=== PATIENT | female | born 1980 | race Caucasian/White ===

== ENCOUNTER 2023-08-21 13:23 | Outpatient (CLI) | payer OTHER, SELFPAY | END 2023-08-21 13:24 | disposition home or self-care (01) | PROVIDERS: Visit Provider Emergency Medicine | DX: R10.9 Unspecified abdominal pain (principal); R68.89 Other general symptoms and signs; R19.8 Other specified symptoms and signs involving the digestive system and abdomen | CPT/HCPCS: 80053; 83690; 84443; 86140; 86258; 86364 ==

== ENCOUNTER 2023-09-08 11:57 | Outpatient (CLI) | payer OTHER, SELFPAY ==
--- NOTE | 2023-09-08 13:35 | W.ANESCHARGE ---
Anesthesia Charges Start Date/Time Anesthesia Start Date: 09/08/23 Anesthesia Start Time: 13:10 Stop Date/Time Anesthesia Stop Date: 09/08/23 Anesthesia Stop Time: 13:37
--- NOTE | 2023-09-08 13:37 | W.ANESCHARGE ---
Anesthesia Charges Start Date/Time Anesthesia Start Date: 09/08/23 Anesthesia Start Time: 13:10 Stop Date/Time Anesthesia Stop Date: 09/08/23 Anesthesia Stop Time: 13:37
== END 2023-09-08 11:58 | disposition home or self-care (01) ==
LOC: OP CLINIC 12:03
PROVIDERS: PCP Emergency Medicine; Visit Provider Surgery
DX: R10.84 Generalized abdominal pain (principal)
CPT/HCPCS: 00811; 45380; 88305; J2405; J2704

== ENCOUNTER 2023-10-09 08:09 | Outpatient (CLI) | payer OTHER, SELFPAY | END 2023-10-09 08:10 | disposition home or self-care (01) | LOC: LKVREF 08:10 | PROVIDERS: PCP Emergency Medicine; Visit Provider Emergency Medicine | DX: R10.13 Epigastric pain (principal) | CPT/HCPCS: 87338 ==

== ENCOUNTER 2024-08-21 11:39 | Emergency (ER) | payer OTHER, SELFPAY ==
--- OUTSIDE RECORDS SUMMARY | 2024-08-21 11:42 | XMS_ITS | Encounter Summary ---
Author Organization [facility] Address [address] [address] Care Team Providers Care Welfare Investigator Name Role Phone Valeria Vaca PA-C Primary Care Provider +1 [phone] Encounter Details Date Type Department Care Team (Late st Contact Info) Description 05/20/2017 Correspondence None No Primary/Referring, Phy E EQUIPMENT TRANSIT BUS DRIVER TICKET Social History Tobacco Use Types Packs/Day Years Used Date Smoking Tobacco: Never Smokeless Tobacco: Never Alcohol Use Standard Drinks/Week Comments No 2 (1 standard drink = 0.6 oz pur e alcohol) Comments Yes Sex and Gender Information Value Date Recorded Sex Assigned at Not on file Legal Sex Female 6:58 AM CDT Gender Identity Not on file Sexual Orientation Not on file 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 Not on file documented as of this encounter Plan of Treatment Upcoming Encounters Date Type Department Care Team (Late st Contact Info) Description 09/02/2024 1:10 PM CDT Appointment [facility] M[facility] at [facility] [address] [address] documented as of this encounter Visit Diagnoses Not on filedocumented in this encounter Additional Health Concerns Infection Onset Date Last Indicated Resolved Time R/O COVID19 01/02/2020 01/02/2020 01/06/2020 12:1 6 PM CDT R/O COVID19 04/24/2021 04/24/2021 04/24/2021 8:44 PM CDT documented as of this encounter Care Teams Welfare Investigator Relationship Specialty Start Date End Date Valeria Vaca PA-C [address] [place] [address] PCP - General Physician Environmental Protection Inspector 01/05/19 documented as of this encounter
--- OUTSIDE RECORDS SUMMARY | 2024-08-21 11:43 | XMS_ITS | Clinical Summary ---
Author Organization [facility] Address [address] [place] [address] Care Team Providers Care Meter Installer Name Role Phone Valeria Vaca PA-C Primary Care Provider [phone] Source Comments You are receiving this document as you are listed as the primary care provider,follow-up provider, or the patient has been referred to you for consultation.This is in compliance with the Medicare and[facility] EHR Incentive Program,which states Providers who transition their patient to another setting of careor provider of care or refers their patient to another provider of care shouldprovide summary care record for each transition of care or referral. [facility] Allergies Active Allergy Reactions Criticality Noted Date Comments Sulfa Antibiotics Other, see comments 4 Short term memory loss Sulfa Antibiotics Other, see comments High 5 Short term memory loss. Medications * This document contains information received from the source organization and may not represent a complete record from that organization. metroNIDAZOLE (METROCREAM) 0.75 % creamIndication s:Perioral dermatitis Apply a thin layer to lower face once a day. 45 g 3 2 Active hydrocortisone 2.5 % ointmentIndicat ions:Rash Apply topically to affected areas on the armpits twice a day for 2 weeks for rash and itchy. 45 g 1 2 Active cholecalciferol (VITAMIND3) 50 MCG (2000 UT) tablet Take 1 Tablet (2,000 Units) by mouth daily. Active Active Problems Problem Noted Date Diagnosed Date Not immune to hepatitis B virus 11/12/2016 Overview (06/17/2017): Will start series pp Resolved Problems Problem Noted Date Diagnosed Date Resolved Date Anemia, 07/02/2017 Overview (07/02/2017): QBL 600. PP Hgb 10.6 (down from 11/3 on admission) Normal labor 07/01/2017 08/11/2017 (spontaneous vaginal delivery) 07/01/2017 08/11/2017 Cervical cancer screening 03/01/2016 Overview (02/12/2017): From visit on 02/27/16: History of abnormal pap tests? Yes; Age: unknown -pt reports positive hpv 3-4 years ago, had normal follow up paptests 2015 NILM ,neg HPV 35 y.o. Plan: cotest 02/2019 ; Pap test history depression 08/02/20152020 Overview (07/02/2017): Attributes to lifestyle change, being a first time mother. Moods improved with therapy. No meds Mood has been stable 2nd - denies concern for PPD as of 07/01/17 (normal spontaneous vaginal delivery) 06/17/2015 08/02/2015 Hx of major depression 11/18/201408/02 Overview (03/14/2015): Plan visit with counselor at the end of to make plan for pp Ongoing counselor care, twice monthly. No meds. Immunizations Immunization Administration Dates Next Due Influenza IIV4 (Quadrivalent ) 0.5mL (74959) 05/09/2015(Deferred: Patient Refused) Family History Medical History Relation Name Comments Hyperlipidemia Father Hypertension Father Cerebrovascular Disease Mother CADA LESLI Hyperlipidemia Mother Hypertension Mother Stroke Mother Cerebrovascular Disease Maternal Uncle 1 Cerebrovascular Disease Maternal Uncle 2 Cancer, Breast Negative Family History Cancer, Ovary Negative Family History Relation Name Status Comments Father Alive Mother Alive Brother Alive Maternal Grandmother Maternal Uncle 1 Maternal Uncle 2 Alive Social History Tobacco Use Types Packs/Day Years Used Date Smoking Tobacco: Never Smokeless Tobacco: Never Alcohol Use Standard Drinks/Week Comments Yes 2 (1 standard drink = 0.6 oz pur e alcohol) PHQ-2 Answer Date Recorded PHQ-2 Score 0 08/02/2022 Depression Answer Date Recor ded Last EPDS Total Score 4 07/31/2024 Last EPDS Self Harm Result Not on file 07/31 Comments No Sex and Gender Information Value Date Recorded Sex Assigned at Not on file Legal Sex Female 6:58 AM CDT Gender Identity Not on file Sexual Orientation Not on file 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 Not on file Last Filed Vital Signs Vital Sign Reading Time Taken Comments Blood Pressure 104/71 06/02/2023 1:07 PM UTILITY OPERATOR YARN Pulse 71 06/02/2023 1:07 PM UTILITY OPERATOR YARN Temperature 36.7 C (98.1 F) 06/02/2023 1:07 PM UTILITY OPERATOR YARN Respiratory Rate 12 06/02/2023 1:07 PM UTILITY OPERATOR YARN Oxygen Saturation 96% 10/04/2021 11:00 AM CDT Inhaled Oxygen Concentration - - Weight 68.1 kg (150 lb 2 oz) 08/02/2022 8:31 AM UTILITY OPERATOR YARN Height 168.9 cm (5' 6.5) 08/02/2022 8:31 AM UTILITY OPERATOR YARN Body Mass Index 23.87 08/02/2022 8:31 AM UTILITY OPERATOR YARN Plan of Treatment Upcoming Encounters Date Type Department Care Team (Late st Contact Info) Description 09/02/2024 1:10 PM CDT Appointment [facility] at [facility] [place] [address] Health Maintenance Due Date Last Done Comments DTaP/Tdap/Td (1 - Tdap) 1999 HepB (1) 1999 COVID-19 Vaccine ( season) 2024 Influenza (#1) 2024 Adult Preventive Visit 08/02/2024 , 04/24/2021, 01/05/2019, Additional history exists Mammogram 08/19/2024 08/19/2023, 07/25, 05/22/2021 Cervical Cancer Screening 04/24/2026 04/24/2021, 11/2015 Zoster/Shingles (1 of 2) 2030 HIV Screening (Preventive Services) Completed 11/11/2016, 11/18/2014 Hep C Screening (Preventive Services) Completed 11/11/2016, 11/18/2014 HPV Vaccine Aged Out No longer eligi ble based on patient's age to complete this topic HepA Aged Out No longer eligi ble based on patient's age to complete this topic Hib Aged Out No longer eligi ble based on patient's age to complete this topic IPV (Polio) Aged Out No longer eligi ble based on patient's age to complete this topic MCV4 Aged Out No longer eligi ble based on patient's age to complete this topic Meningococcal B Aged Out No longer el igible based on patient's age to complete this topic Pneumococcal Aged Out No longer eligi ble based on patient's age to complete this topic Procedures Procedure Name Priority Date/Time Associated Diagnosis Comments MM MAMMOGRAM SCREENING BILAT W 3D [place] W CAD Routine 08/19/2023 3:30 PM UTILITY OPERATOR YARN PAP TEST Routine 04/24/2021 11:57 AM CDT Screening for malignant neoplasm of cervix HIV 1/2 AG/AB 4TH GEN Routine 11/11/2016 4:11 PM CDT Encounter for supervision of other normal in first trimester HEPATITIS C ANTIBODY, WITH REFLEX Routine 11/11/2016 4:11 PM CDT Encounter for supervision of other normal in first trimester from Last 3 Months or Most Recently Relevant to Health Maintenance Results * (ABNORMAL) MM Mammogram Screening Bilat W 3D [place] W CAD (08/19/2023 3:30 PM UTILITY OPERATOR YARN) Anatomical Region Laterality Modality Breast Bilateral Mammography Impressions 08/19/2023 3:51 PM UTILITY OPERATOR YARN : ACR BI-RADS Category: 0 - Incomplete: Needs Additional Imaging Evaluation (right) RECOMMENDATION: Ultrasound The results and recommendations of this examination will be communicated to the patient and the imaging center will attempt to schedule any recommended follow up with the patient. As a result of the Cures Act, all medical imaging exams are released immediately to [email or web address]. You may be viewing this report before our scheduling staff and your referring provider. We will attempt to contact you by phone within one business day of this report to schedule any recommended follow-up exams. If you have questions, please contact your health care provider. Narrative 08/19/2023 3:51 PM UTILITY OPERATOR YARN MM MAMMOGRAM SCREENING BILAT W 3D [place] W CAD performed on 08/19/23 Compared to: 08/16/2022 MM Mammogram Screening Bilat W 3D [place] W CAD and 05/22/2021 MM Mammogram Screening Bilat W 3D [place] W CAD FINDINGS: Bilateral screening mammogram was performed with the assistance of Computer-Aided Detection and breast tomosynthesis. The breasts are heterogeneously dense, which may obscure small masses. There is a focal asymmetry in the right breast at the 9 o'clock position at middle depth. The remainder of the breast tissue is unremarkable. us Valeria Vaca PA-C RAD KAI Final Resul t * PAP Test (04/24/2021 11:57 AM CDT) Case Report Pap Case: [id number] Authorizing Provider: Valeria Vaca PA-C Collected: 04/24/2021 1157 Ordering Location: [facility] Received: 04/24/2021 1217 Practice First Screen: Jennifer Vazquez CT (ASCP) Specimen: Pap Test, Routine, Cervix/Endocervix 05/02/2021 12:59 PM [facility] Pap Specimen Adequacy Satisfactory for evaluation, endocervical/dawson sformation zone component present. 05/02/2021 12:59 PM [facility] Pap Interpretation Negative for intraepithelial lesion or malignancy (NILM). 05/02/2021 12:59 PM [facility] at 1259 UTILITY OPERATOR YARN Pap Disclaimer The Pap test is a screening test designed to aid in the detection of cervical cancer and its precursor lesions. It is not a diagnostic procedure and should not be used as the sole means of detecting cervical cancer. Both false-positive and false-negative results may occur. 05/02/2021 12:59 PM [facility] Gross Description The specimen is received in SurePath fixative and properly labeled. 1 Pap-stained SurePath slide is prepared. 05/02/2021 12:59 PM [facility] Embedded Images 12:59 PM [facility] Other Specimen Type ENTIRE ENDOCERVIX / Unknown 04/24/2021 11:57 AM CDT 04/24/2021 12:17 PM CDT Comment:LMP: Patient's last menstrual period was 03/30/2021. us Valeria Vaca PA-C LAB PATHOLOGY [place] [address], [facility] [phone] * HIV 1/2 Ag/Ab 4th Generation (11/11/2016 4:11 PM CDT) HIV 1/2 AG/AB 4thGEN Negative (Non Reactive) [facility] Comment:HIV-1 p24 Ag and HIV -1/HIV-2 Ab not detected. 11/11/2016 4:11 PM CDT 11/11/2016 4:17 PM CDT Narrative [facility] - 11/11/2016 7:12 PM CDT Performed at [facility], [address] [place] [id number] us Anika Blackburn APRN, CNM LAB_1 Final Result Performing Organization Address City/[facility]/ZIP Co de Phone Number [facility] [phone] * Hepatitis C Antibody, with Reflex (11/11/2016 4:11 PM CDT) Anti-HCV Negative (Non Reactive) [facility] Comment: Antibodies to HCV not detected. Does not exclude the possibility of exposure to HCV. 11/11/2016 4:11 PM CDT 11/11/2016 4:15 PM CDT Narrative [facility] - 11/11/2016 7:13 PM CDT Performed at [facility], [address] [place] [id number] Anika Peck Bere QUEZADA, CNM LAB_1 Final Result [facility] [phone] from Last 3 Months or Most Recently Relevant to Health Maintenance Insurance MEDICA CHOICE [employer] CHOICE Advance Directives * Full Code (Latest Code Status on File) Date Activated Date Inactivated Comments 07/01/2017 2:52 PM 07/03/2017 3:17 PM * Full Code Date Activated Date Inactivated Comments 06/18/2015 2:36 PM 06/20/2015 2:23 PM * Full Code Date Activated Date Inactivated Comments 06/17/2015 11:25 PM 06/18/2015 2:36 PM * Full Code Date Activated Date Inactivated Comments 06/17/2015 12:36 PM 06/17/2015 3:28 PM Care Teams Meter Installer Relationship Specialty Start Date End Date Valeria Vaca PA-C [address] [place] [address] PCP - General Physician First Grade Teacher 01/05/19
--- OUTSIDE RECORDS SUMMARY | 2024-08-21 11:43 | XMS_ITS | Encounter Summary ---
Author Organization [facility] Address [address], [place] [address] Care Team Providers Care Asphalt Heater Tender Name Role Phone Valeria Vaca PA-C Primary Care Provider [phone] [phone] Encounter Details Date Type Department Care Team (Late Contact Info) Description 03/27/2016 Correspondence [facility] Radiology [address] [place] [phone] Radiology, Provider MRI SAFETY SHEET AND COMPATIBILITY FORM Social History Tobacco Use Types Packs/Day Years Used Date Smoking Tobacco: Never Smokeless Tobacco: Never Alcohol Use Standard Drinks/Week Comments Yes 2 (1 standard drink = 0.6 oz pur e alcohol) Comments No Sex and Gender Information Value Date Recorded Sex Assigned at Not on file Legal Sex Female 6:58 AM CDT Gender Identity Not on file Sexual Orientation Not on file 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 file Not on file documented as of this encounter Plan of Treatment Upcoming Encounters Date Type Department Care Team (Late st Contact Info) Description 09/02/2024 1:10 PM CDT Appointment [facility] Mammography at [facility] [address] [address] documented as of this encounter Visit Diagnoses Not on filedocumented in this encounter Additional Health Concerns Infection Onset Date Last Indicated Resolved Time R/O COVID19 01/02/2020 01/02/2020 01/06/2020 12:1 6 PM CDT R/O COVID19 04/24/2021 04/24/2021 04/24/2021 8:44 PM CDT documented as of this encounter Care Teams Asphalt Heater Tender Relationship Specialty Start Date End Date Valeria Vaca PA-C [address] [place] [address] PCP - General Physician Housing Development Specialist 01/05/19 documented as of this encounter
--- OUTSIDE RECORDS SUMMARY | 2024-08-21 11:43 | XMS_ITS | Encounter Summary ---
Author Organization [facility] Address [address] [address] Care Team Providers Care Skidder Name Role Phone Valeria Vaca PA-C Primary Care Provider [phone] Encounter Details Date Type Department Care Team (Late st Contact Info) Description 06/18/2015 Consent for Procedure/Treatme nt [facility] RH REFUSAL-VIT.K/ABX EYE OINTMENT Social History Tobacco Use Types Packs/Day Years Used Date Smoking Tobacco: Never Smokeless Tobacco: Never Alcohol Use Standard Drinks/Week Comments No 0 (1 standard drink = 0.6 oz pur e alcohol) Comments No Sex and Gender Information Value Date Recorded Sex Assigned at Not on file Legal Sex Female 6:58 AM CDT Gender Identity Not on file Sexual Orientation Not on file 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 Not on file documented as of this encounter Plan of Treatment Upcoming Encounters Date Type Department Care Team (Late st Contact Info) Description 09/02/2024 1:10 PM CDT Appointment [facility] Mammography at [facility] [address] [address] documented as of this encounter Visit Diagnoses Not on filedocumented in this encounter Additional Health Concerns Infection Onset Date Last Indicated Resolved Time R/O COVID19 01/02/2020 01/02/2020 01/06/2020 12:1 6 PM CDT R/O COVID19 04/24/2021 04/24/2021 04/24/2021 8:44 PM CDT documented as of this encounter Care Teams Skidder Relationship Specialty Start Date End Date Valeria Vaca PA-C [address] [place] [address] PCP - General Physician Public Employment Mediator 01/05/19 documented as of this encounter
--- OUTSIDE RECORDS SUMMARY | 2024-08-21 11:43 | XMS_ITS | Encounter Summary ---
Author Organization [facility] Address [address] [address] Care Team Providers Care Flange Turner Name Role Phone Valeria Vaca PA-C Primary Care Provider [phone] Encounter Details Date Type Department Care Team (Late st Contact Info) Description 03/10/2017 Consent for Procedure/Treatm [facility] Obstetrics and Gynecology [address] [place] [address] Anika Velasco APRN, CN [address] [place] [address] CONSENT FOR WATERBIRTH Social History Tobacco Use Types Packs/Day Years [...] Appointment [facility] Mammography at [facility] [address] [address] documented as of this encounter Visit Diagnoses Not on filedocumented in this encounter Additional Health Concerns Infection Onset Date Last Indicated Resolved Time R/O COVID19 01/02/2020 01/02/2020 01/06/2020 12:1 6 PM CDT R/O COVID19 04/24/2021 04/24/2021 04/24/2021 8:44 PM CDT documented as of this encounter Care Teams Flange Turner Relationship Specialty Start Date End Date Valeria Vaca PA-C [address] [place] [address] PCP - General Physician Second Cutter 01/05/19 documented as of this encounter
--- OUTSIDE RECORDS SUMMARY | 2024-08-21 11:43 | XMS_ITS | Clinical Summary ---
Author Organization [place] Address [address] [place] [address] Care Team Providers Care [place] Former Machine Operator Name Role Phone [facility] Primary Care Provider Allergies Active Allergy Reactions Criticality Noted Date Comments Sulfa Antibiotics 09/13/2020 Social History Tobacco Use Types Packs/Day Years Used Date Smoking Tobacco: Never Assessed Adolescent Education Answer Date Record ed Getting School Help Needed Not on file 03/31 Comments Unknown Sex and Gender Information Value Date Recorded Sex Assigned at Not on file Legal Sex Female 4:24 AM WAREHOUSE SHIPPING ASSOCIATE Gender Identity Not on file Sexual Orientation Not on file Last Filed Vital Signs Vital Sign Reading Time Taken Comments Blood Pressure 170/95 09/13/2020 8:00 PM CDT Pulse 76 09/13/2020 8:00 PM CDT Temperature 36.7 C (98.1 F) 09/13/2020 7:42 PM CDT Respiratory Rate 16 09/13/2020 7:42 PM CDT Oxygen Saturation 98% 09/13/2020 8:00 PM CDT Inhaled Oxygen Concentration - - Weight 65.8 kg (145 lb) 09/13/2020 7:42 PM CDT Height - - Body Mass Index - - Plan of Treatment Not on file Insurance MEDICA CHOICE Care Teams [place] Former Machine Operator Relationship Specialty Start Date End Date [facility], [address] [address] PCP - General 09/13/20
--- OUTSIDE RECORDS SUMMARY | 2024-08-21 11:43 | XMS_ITS | Encounter Summary ---
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 Not on file documented as of this encounter Plan of Treatment Upcoming Encounters Date Type Department Care Team (Late st Contact Info) Description 09/02/2024 1:10 PM CDT Appointment [facility] Mammography at [facility] [address] [address] documented as of this encounter Visit Diagnoses Not on filedocumented in this encounter Additional Health Concerns Infection Onset Date Last Indicated Resolved Time R/O COVID19 01/02/2020 01/02/2020 01/06/2020 12:1 6 PM CDT R/O COVID19 04/24/2021 04/24/2021 04/24/2021 8:44 PM CDT documented as of this encounter Care Teams Central Sterile Technician Relationship Specialty Start Date End Date Valeria Vaca PA-C [address] [place] [address] PCP - General Physician Electronic Typesetting Machine Operator 01/05/19 documented as of this encounter
--- OUTSIDE RECORDS SUMMARY | 2024-08-21 11:43 | XMS_ITS | Encounter Summary ---
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 Not on file documented as of this encounter Plan of Treatment Upcoming Encounters Date Type Department Care Team (Late st Contact Info) Description 09/02/2024 1:10 PM CDT Appointment [facility] Mammography at [facility] [address] [address] documented as of this encounter Visit Diagnoses Not on filedocumented in this encounter Additional Health Concerns Infection Onset Date Last Indicated Resolved Time R/O COVID19 01/02/2020 01/02/2020 01/06/2020 12:1 6 PM CDT R/O COVID19 04/24/2021 04/24/2021 04/24/2021 8:44 PM CDT documented as of this encounter Care Teams Lead Painter Relationship Specialty Start Date End Date Valeria Vaca PA-C [address] [place] [address] PCP - General Physician Machine Tracer 01/05/19 documented as of this encounter
[2024-08-21 11:50] VITALS: BP 171/96; PULSE 64; RESP 16; TEMP 37; O2SAT 100; BMI 23.8
--- NOTE | 2024-08-21 12:20 | ED.ABDPAIN ---
HPI - Abdominal Pain General Chief Complaint: Abdominal Pain Stated Complaint: Abdominal pain Time Seen by Provider: 08/21/24 11:41 History of Present Illness HPI narrative: This 44-year-old female comes in reporting abdominal pain for the past 3 days. She states that there is a baseline constant pain but beyond that it comes and goes with more intensity at times. She reports some nausea but no vomiting. She has not had any dysuria symptoms or diarrhea or constipation. She did have a normal colonoscopy less than a year ago. She has had some abdominal pains in the past but this feels different. She does not report any fevers. She does have loss of appetite. Related Data Home Medications ?Medication ?Instructions ?Recorded ?Confirmed progesterone micronized 100 mg mg 08/21/24 capsule testosterone transdermal 08/21/24 Previous Rx's ?Medication ?Instructions ?Recorded pantoprazole 20 mg tablet,delayed 40 mg (2 x 20 mg) PO DAILY #20 tabs 08/21/24 release (Protonix) Allergies Allergy/AdvReac Type Severity Reaction Status Date / Time Sulfa (Sulfonamide Allergy Severe Verified 08/21/24 12:43 Antibiotics) Review of Systems Status of ROS Reports: 10 or more systems reviewed and unremarkable except as noted in History and below Narrative Constitutional: No fevers, no weight gain or loss. Eyes: No discharge. No vision changes. HENT: No congestion, no sore throat, no ear pain. Cardiovascular: No chest pain, no palpitations. Respiratory: No shortness of breath, no wheezes, no cough. Gastrointestinal: Diffuse abdominal pain more localized in the upper epigastrium. Nausea but no vomiting or diarrhea. Genitourinary: No dysuria, no hematuria. Musculoskeletal: Normal range of motion. Skin: No rashes, no pruritis. Neurological: No dizziness, weakness, sensory change, speech change. Endo/Heme/Allergies: No bruising or bleeding. No polydipsia. Pysch: no suicidality, no anxiety, no insomnia. All other systems reviewed and are negative. [facility] Medical History (Updated 08/21/24 @ 14:50 by Rodolfo Dixon MD) Epigastric abdominal pain ?R10.13 - Epigastric pain (ICD-10) Alternating constipation and diarrhea ?R19.8 - Other specified symptoms and signs involving the digestive system and abdomen (ICD-10) Abdominal pain ?R10.9 - Unspecified abdominal pain (ICD-10) Cold intolerance ?R68.89 - Other general symptoms and signs (ICD-10) Surgical History (Updated 08/21/23 @ 13:19 by Dot Cheema MD) History of arthroscopic knee surgery ?Z98.890 - Other specified postprocedural states (ICD-10) Family History (Updated 08/21/23 @ 13:28 by Dot Cheema MD) Mother Stroke Father Coronary artery disease AAA (abdominal aortic aneurysm) Social History (Updated 08/31/23 @ 17:22 by Dot Cheema MD) Narrative: never smoked, 1-2 etoh/week, no recreationaldrugs 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 HEENT: Normocephalic, atraumatic. Neck: Normal range of motion. Nontender. Supple. Heart: Regular. No murmurs. Normal rate. Intact distal pulses. Lungs: Clear to auscultation. No chest discomfort. No wheezes, rhonchi, or rales. Abdomen: Normal bowel sounds. No rebound tenderness. Rovsing sign is negative. No tenderness over McBurney's point. Tenderness is most localized in the upper epigastrium. Genitalia: Deferred. Back: No midline tenderness. Normal range of motion. Extremities: Normal range of motion. No injury. Skin: Intact. No rash. Warm. No erythema or pallor. Neurologic: No altered sensation. No weakness. Alert and oriented. Psychiatric: No suicidality. No anxiety or depression. No insomnia. Nursing notes and vitals signs are reviewed. Const: Vital Signs, click to edit/add: Vital Signs - 24 hr 08/21/24 11:50 Temperature 98.6 F Pulse Rate [Pulse Oximeter] 64 Respiratory Rate 16 Blood Pressure [Ri ght Upper Arm] 171/96 H Pulse Oximetry 100 Oxygen Delivery Me thod Room Air Course Vital Signs Vital signs: Initial Vital Signs Temperature 98.6 F 08/21/24 11:50 Temperature Source Temporal Artery Scan 08/21/24 11:50 Pulse Rate 64 08/21/24 11:50 Respiratory Rate 16 08/21/24 11:50 Blood Pressure 171/96 H 08/21/24 11:50 Blood Pressure Mean 121 H 08/21/24 11:50 Blood Pressure Position Sitting 08/21/24 11:50 Pulse Oximetry 100 08/21/24 11:50 Oxygen Delivery Method Room Air 08/21/24 11:50 Vital Signs Temperature 98.6 F 08/21/24 11:50 Pulse Rate 64 08/21/24 11:50 Respiratory Rate 16 08/21/24 11:50 Blood Pressure 171/96 H 08/21/24 11:50 Pulse Oximetry 100 08/21/24 11:50 Oxygen Delivery Method Room Air 08/21/24 11:50 Temperature 98.6 F 08/21/24 11:50 Pulse Rate 64 08/21/24 11:50 Respiratory Rate 16 08/21/24 11:50 Blood Pressure 171/96 H 08/21/24 11:50 Pulse Oximetry 100 08/21/24 11:50 Oxygen Delivery Method Room Air 08/21/24 11:50 Medications Administered Medications: Discontinued Medications Generic Name Dose Route Start Last Admin Trade Name Freq PRN Reason Stop Dose Admin Sodium Chloride 500 mls @ 500 mls/hr 08/21/24 12:19 08/21/24 14:45 0.9 % Sodium Chloride 500 Ml IV 08/21/24 13:18 Infused .Q1H ONE Infusion Ketorolac Tromethamine 15 mg 08/21/24 12:19 08/21/24 13:00 Ketorolac 30 Mg/Ml Inj IVP 08/21/24 12:20 15 mg ONCE ONE Administration Ondansetron HCl 4 mg 08/21/24 12:19 08/21/24 13:00 Ondansetron 2 Mg/Ml Inj IVP 08/21/24 12:20 4 mg ONCE ONE Administration MDM - Abdominal Pain MDM Narrative Medical decision making narrative: This patient comes in reporting abdominal pain as described above. She does arrive here with normal vital signs. I did describe lab and imaging options but gave reassurance is regarding her exam and vital signs. She elected to have a CT scan of her abdomen and pelvis. This was done with IV contrast and returns with no specific findings to explain her symptoms. Additionally lab results all returned with normal findings. The patient did receive IV doses of Zofran and Toradol in this brought significant relief to her symptoms. It does seem that she is experiencing symptoms possibly from a gastritis or something in the GI tract. She is okay to be discharged home. I did provide a prescription for Protonix. I advised her to follow-up with her primary physician and if symptoms are persistent or recurrent or worsening she may benefit from an upper endoscopy. Lab Data Labs: Lab Results 08/21/24 Range/Units 12:36 WBC 9.21 (4.50-11.00) K/uL RBC 5.32 H (4.00-5.20) m/uL Hgb 14.5 (12.0-16.0) gm/dL Hct 43.0 (33.0-51.0) % MCV 81 (80-100) fL MCH 27 (26-34) pg MCHC 34 (32-36) gm/dL RDW Coeff of Sharyn 14.2 (11.5-15.5) % Plt Count 280 (140-440) K/uL Neut % (Auto) 75.1 H (42.0-72.0) % Lymph % (Auto) 17.9 L (20-44) % [place] % (Auto) 6.4 (0.0-11.0) % Eos % (Auto) 0.2 (0.0-7.0) % Baso % (Auto) 0.3 (0.0-3.0) % Neut # (Auto) 6.90 (1.7-7.0) K/uL Lymph # (Auto) 1.60 (0.90-2.90) K/uL [place] # (Auto) 0.60 (0.00-0.90) K/UL Eos # (Auto) 0.02 (0.00-0.50) K/uL Baso # (Auto) 0.03 (0.00-0.30) K/uL Abs Immat Gran (auto) 0.01 (0.00-0.30) K/uL Imm/Tot Granulo (auto) 0.1 % Sodium 137 (135-149) mmol/L Potassium 3.7 (3.6-5.1) mmol/L Chloride 101 (96-114) mmol/L Carbon Dioxide 24 (20-32) mmol/L Anion Gap 12 (7-15) mEq/L BUN 10 (5-24) mg/dL Creatinine 0.9 (0.5-1.5) mg/dL Estimated Creat Clear 74.67 Estimated GFR 81 ml/min Glucose 98 (60-115) mg/dL Calcium 9.9 (8.4-10.6) mg/dL Total Bilirubin 0.5 (0.1-1.5) mg/dL Direct Bilirubin 0.1 (0.0-0.5) mg/dL AST 26 (12-35) U/L ALT 21 (4-35) U/L Alkaline Phosphatase 46 (40-150) U/L Total Protein 8.3 (6.0-8.3) g/dL Albumin 5.0 (3.3-5.0) g/dL Lipase 114 (23-300) U/L Imaging Data CT scan - abdomen: Radiologist's impression: Fecalized small bowel distally may reflect slow transit there is fluid-filled small bowel loops with mild wall thickening and mild mucosal enhancement in the pelvis findings could represent enteritis no obstruction is seen. Discharge Plan Discharge Clinical Impression: Gastritis Patient Disposition: Home, Self-Care Condition: Improved Additional Instructions: Take Protonix as prescribed when needed. Follow up with MD if symptoms are recurrent or worsening to consider upper endoscopies. Return if worsening. Prescriptions: New pantoprazole [Protonix] 20 mg tablet,delayed release (DR/EC) 40 mg PO DAILY Qty: 20 2RF No Action progesterone micronized 100 mg capsule Patient Comments: TAKE TWO CAPSULES (200 MG) BY MOUTH DAILY AT BEDTIME testosterone transdermal Follow Up/Referrals: Dot Cheema MD [Primary Care Provider] - Stand Alone Forms: [employer] Info Instructions
--- OUTSIDE RECORDS SUMMARY | 2024-08-21 12:25 | XMS_ITS | Clinical Summary ---
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
--- OUTSIDE RECORDS SUMMARY | 2024-08-21 12:25 | XMS_ITS | Encounter Summary ---
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 Not on file Not on file documented as of this encounter Plan of Treatment Upcoming Encounters Date Type Department Care Team (Late st Contact Info) Description 09/02/2024 1:10 PM CDT Appointment [facility] M[facility] at [facility] [address] [address] documented as of this encounter Visit Diagnoses Not on filedocumented in this encounter Additional Health Concerns Infection Onset Date Last Indicated Resolved Time R/O COVID19 01/02/2020 01/02/2020 01/06/2020 12:1 6 PM CDT R/O COVID19 04/24/2021 04/24/2021 04/24/2021 8:44 PM CDT documented as of this encounter Care Teams Technical Sales Manager Relationship Specialty Start Date End Date Valeria Vaca PA-C [address] [place] [address] PCP - General Physician Skeiner 01/05/19 documented as of this encounter
--- OUTSIDE RECORDS SUMMARY | 2024-08-21 12:25 | XMS_ITS | Encounter Summary ---
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 Not on file Not on file documented as of this encounter Plan of Treatment Upcoming Encounters Date Type Department Care Team (Late st Contact Info) Description 09/02/2024 1:10 PM CDT Appointment [facility] M[facility] at [facility] [address] [address] documented as of this encounter Visit Diagnoses Not on filedocumented in this encounter Additional Health Concerns Infection Onset Date Last Indicated Resolved Time R/O COVID19 01/02/2020 01/02/2020 01/06/2020 12:1 6 PM CDT R/O COVID19 04/24/2021 04/24/2021 04/24/2021 8:44 PM CDT documented as of this encounter Care Teams Dean Of Faculty Relationship Specialty Start Date End Date Valeria Vaca PA-C [address] [place] [address] PCP - General Physician Automatic Log Cut Off Sawyer 01/05/19 documented as of this encounter
--- OUTSIDE RECORDS SUMMARY | 2024-08-21 12:25 | XMS_ITS | Encounter Summary ---
Author Organization [facility] Address [address], [place] [address] Care Team Providers Care Delivery Associate Name Role Phone Valeria Vaca PA-C Primary Care Provider [phone] Encounter Details Date Type Department Care Team (Late st Contact Info) Description 03/10/2017 Consent for Procedure/Treatm [facility] Obstetrics and Gynecology [address] [place] [address] Anika Velasco APRN, CN [address] [place] [address] CONSENT FOR WATERBIRTH Social History Tobacco Use [...] [facility] [address] [address] documented as of this encounter Visit Diagnoses Not on filedocumented in this encounter Additional Health Concerns Infection Onset Date Last Indicated Resolved Time R/O COVID19 01/02/2020 01/02/2020 01/06/2020 12:1 6 PM CDT R/O COVID19 04/24/2021 04/24/2021 04/24/2021 8:44 PM CDT documented as of this encounter Care Teams Delivery Associate Relationship Specialty Start Date End Date Valeria Vaca PA-C [address] [place] [address] PCP - General Physician It Web Development Consultant 01/05/19 documented as of this encounter
--- OUTSIDE RECORDS SUMMARY | 2024-08-21 12:25 | XMS_ITS | Encounter Summary ---
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 Not on file documented as of this encounter Plan of Treatment Upcoming Encounters Date Type Department Care Team (Late st Contact Info) Description 09/02/2024 1:10 PM CDT Appointment [facility] Mammography at [facility] [address] [address] documented as of this encounter Visit Diagnoses Not on filedocumented in this encounter Additional Health Concerns Infection Onset Date Last Indicated Resolved Time R/O COVID19 01/02/2020 01/02/2020 01/06/2020 12:1 6 PM CDT R/O COVID19 04/24/2021 04/24/2021 04/24/2021 8:44 PM CDT documented as of this encounter Care Teams Quarryman Relationship Specialty Start Date End Date Valeria Vaca PA-C [address] [place] [address] PCP - General Physician Account Coordinator 01/05/19 documented as of this encounter
--- OUTSIDE RECORDS SUMMARY | 2024-08-21 12:25 | XMS_ITS | Encounter Summary ---
Author Organization [facility] Address [address], [place] [address] Care Team Providers Care Pusher Runner Name Role Phone Valeria Vaca PA-C Primary Care Provider [phone] Encounter Details Date Type Department Care Team (Late st Contact Info) Description 05/20/2017 Correspondence None No Primary/Referring, Phy E EQUIPMENT EDITOR TICKET Social History Tobacco Use Types Packs/Day [...] Appointment [facility] Mammography at [facility] [address] [address] documented as of this encounter Visit Diagnoses Not on filedocumented in this encounter Additional Health Concerns Infection Onset Date Last Indicated Resolved Time R/O COVID19 01/02/2020 01/02/2020 01/06/2020 12:1 6 PM CDT R/O COVID19 04/24/2021 04/24/2021 04/24/2021 8:44 PM CDT documented as of this encounter Care Teams Pusher Runner Relationship Specialty Start Date End Date Valeria Vaca PA-C [address] [place] [address] PCP - General Physician Attendance Officer 01/05/19 documented as of this encounter
--- OUTSIDE RECORDS SUMMARY | 2024-08-21 12:25 | XMS_ITS | Encounter Summary ---
Author Organization [facility] Address [address], [place] [address] Care Team Providers Care Event Crew Technician Name Role Phone Valeria Vaca PA-C Primary Care Provider [phone] Encounter Details Date Type Department Care Team (Late st Contact Info) Description 06/18/2017 [facility] Obstetrics and Gynecology [address] [place] [address] Anika Velasco APRN, [facility] [address] [place] [address] CERTIFICATION OF HEALTH CARE PROVIDER Social History Tobacco Use Types Packs/Day Years [...] Appointment [facility] Mammography at [facility] [address] [address] documented as of this encounter Visit Diagnoses Not on filedocumented in this encounter Additional Health Concerns Infection Onset Date Last Indicated Resolved Time R/O COVID19 01/02/2020 01/02/2020 01/06/2020 12:1 6 PM CDT R/O COVID19 04/24/2021 04/24/2021 04/24/2021 8:44 PM CDT documented as of this encounter Care Teams Event Crew Technician Relationship Specialty Start Date End Date Valeria Vaca PA-C [address] [place] [address] PCP - General Physician Cruise Director 01/05/19 documented as of this encounter
--- OUTSIDE RECORDS SUMMARY | 2024-08-21 12:25 | XMS_ITS | Encounter Summary ---
Author Organization [employer] [facility] Address [address] [address] Care Team Providers Care Business Solutions Analyst Name Role Phone Valeria Vaca PA-C Primary Care Provider [phone] Encounter Details Date Type Department Care Team (Late st Contact Info) Description 07/10/2017 [facility] Obstetrics and Gynecology [address] [place] [address] Anika Velasco APRN, [facility] [address] [place] [address] ATTENDING PROVIDER STATEMENT Social History Tobacco Use Types Packs/Day Years [...] [facility] [address] [address] documented as of this encounter Visit Diagnoses Not on filedocumented in this encounter Additional Health Concerns Infection Onset Date Last Indicated Resolved Time R/O COVID19 01/02/2020 01/02/2020 01/06/2020 12:1 6 PM CDT R/O COVID19 04/24/2021 04/24/2021 04/24/2021 8:44 PM CDT documented as of this encounter Care Teams Business Solutions Analyst Relationship Specialty Start Date End Date Valeria Vaca PA-C [address] [place] [address] PCP - General Physician Cell Inspector 01/05/19 documented as of this encounter
--- OUTSIDE RECORDS SUMMARY | 2024-08-21 12:25 | XMS_ITS | Encounter Summary ---
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 Not on file documented as of this encounter Plan of Treatment Upcoming Encounters Date Type Department Care Team (Late st Contact Info) Description 09/02/2024 1:10 PM CDT Appointment [facility] Mammography at [facility] [address] [address] documented as of this encounter Visit Diagnoses Not on filedocumented in this encounter Additional Health Concerns Infection Onset Date Last Indicated Resolved Time R/O COVID19 01/02/2020 01/02/2020 01/06/2020 12:1 6 PM CDT R/O COVID19 04/24/2021 04/24/2021 04/24/2021 8:44 PM CDT documented as of this encounter Care Teams Cook Restaurant Relationship Specialty Start Date End Date Valeria Vaca PA-C [address] [place] [address] PCP - General Physician Tongue Binder 01/05/19 documented as of this encounter
--- OUTSIDE RECORDS SUMMARY | 2024-08-21 12:25 | XMS_ITS | Clinical Summary ---
Author Organization [facility] Address [address] [place] [address] Care Team Providers Care Can Tender Name Role Phone Valeria Vaca PA-C Primary Care Provider [phone] Source Comments You are receiving this document as you are listed as the primary care provider,follow-up provider, or the patient has been referred to you for consultation.This is in compliance with the Medicare and[facility] EHR Incentive Program,which states Providers who transition their patient to another setting of careor provider of care or refers their patient to another provider of care shouldprovide summary care record for each transition of care or referral. [facility] Allergies Active Allergy Reactions Criticality Noted Date [...] Next Due Influenza IIV4 (Quadrivalent ) 0.5mL (07715) 05/09/2015(Deferred: Patient Refused) Family History Medical History [...] Comments Blood Pressure 104/71 06/02/2023 1:07 PM [facility] Pulse 71 06/02/2023 1:07 PM [facility] Temperature 36.7 C (98.1 F) 06/02/2023 1:07 PM [facility] Respiratory Rate 12 06/02/2023 1:07 PM [facility] Oxygen Saturation 96% 10/04/2021 11:00 AM CDT Inhaled Oxygen Concentration - - Weight 68.1 kg (150 lb 2 oz) 08/02/2022 8:31 AM [facility] Height 168.9 cm (5' 6.5) 08/02/2022 8:31 AM [facility] Body Mass Index 23.87 08/02/2022 8:31 AM [facility] Plan of Treatment Upcoming Encounters Date Type Department Care Team (Late st Contact Info) Description 09/02/2024 1:10 PM CDT Appointment [facility] Mammography at [facility] [place] [address] Health Maintenance Due Date Last Done Comments [...] [place] W CAD Routine 08/19/2023 3:30 PM [facility] PAP TEST Routine 04/24/2021 11:57 AM CDT [...] 3D [place] W CAD (08/19/2023 3:30 PM [facility]) Anatomical Region Laterality Modality Breast Bilateral Mammography Impressions 08/19/2023 3:51 PM [facility] : ACR BI-RADS Category: 0 - Incomplete: Needs Additional Imaging Evaluation (right) RECOMMENDATION: Ultrasound The results and recommendations of this examination will be communicated to the patient and the imaging center will attempt to schedule any recommended follow up with the patient. As a result of the Cures Act, all medical imaging exams are released immediately to [employer]. You may be viewing this report before our scheduling staff and your referring provider. We will attempt to contact you by phone within one business day of this report to schedule any recommended follow-up exams. If you have questions, please contact your health care provider. Narrative 08/19/2023 3:51 PM [facility] MM MAMMOGRAM SCREENING BILAT W 3D [place] [...] 11:57 AM CDT) Case Report Pap Case: [id number] Authorizing Provider: Valeria Vaca PA-C Collected: 04/24/2021 1157 Ordering Location: [facility] Received: 04/24/2021 1217 Practice First Screen: Jennifer Vazquez CT (ASCP) Specimen: Pap Test, Routine, Cervix/Endocervix 05/02/2021 12:59 PM [facility] Pap Specimen Adequacy Satisfactory for evaluation, endocervical/dawson sformation zone component present. 05/02/2021 12:59 PM [facility] Pap Interpretation Negative for intraepithelial lesion or malignancy (NILM). 05/02/2021 12:59 PM [facility] at 1259 [facility] Pap Disclaimer The Pap test is a screening test designed to aid in the detection of cervical cancer and its precursor lesions. It is not a diagnostic procedure and should not be used as the sole means of detecting cervical cancer. Both false-positive and false-negative results may occur. 05/02/2021 12:59 PM [facility] Gross Description The specimen is received in SurePath fixative and properly labeled. 1 Pap-stained SurePath slide is prepared. 05/02/2021 12:59 PM [facility] Embedded Images 12:59 PM [facility] Other Specimen Type ENTIRE ENDOCERVIX / Unknown 04/24/2021 11:57 AM CDT 04/24/2021 12:17 PM CDT Comment:LMP: Patient's last menstrual period was 03/30/2021. us Valeria Vaca PA-C LAB PATHOLOGY [place] [address], [facility] [phone] * HIV 1/2 Ag/Ab 4th Generation (11/11/2016 4:11 PM CDT) HIV 1/2 AG/AB 4thGEN Negative (Non Reactive) [facility]GNR [facility] Comment:HIV-1 p24 Ag and HIV -1/HIV-2 Ab not detected. 11/11/2016 4:11 PM CDT 11/11/2016 4:17 PM CDT Narrative [facility] - 11/11/2016 7:12 PM CDT Performed at [facility], [address] [place] [id number] us Anika Blackburn APRN, CNM LAB_1 Final Result Performing Organization Address City/[facility]/ZIP Co de Phone Number [facility] [phone] * Hepatitis C Antibody, with Reflex (11/11/2016 4:11 PM CDT) Anti-HCV Negative (Non Reactive) [facility] Comment: Antibodies to HCV not detected. Does not exclude the possibility of exposure to HCV. 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
[2024-08-21 12:44] LABS: Basophils Absolute Auto 0.03 K/uL (0.00-0.30); Basophils Percent Auto 0.3 % (0.0-3.0); Eosinophils Absolute Auto 0.02 K/uL (0.00-0.50); Eosinophils Percent Auto 0.2 % (0.0-7.0); Hemoglobin* 14.5 gm/dL (12.0-16.0); Immature Granulocytes Abs Auto 0.01 K/uL (0.00-0.30); Immature Granulocytes Pct Auto 0.1 %; Lymphocytes Percent Auto 17.9 % (20-44); Mean Corpuscular HGB Conc 34 gm/dL (32-36); Mean Corpuscular Hemoglobin 27 pg (26-34); Mean Corpuscular Volume 81 fL (80-100); Monocytes Percent Auto 6.4 % (0.0-11.0); Neutrophils Percent Auto 75.1 % (42.0-72.0); Platelet Count* 280 K/uL (140-440); RDW Coefficient of Variation % 14.2 % (11.5-15.5); Red Blood Count 5.32 m/uL (4.00-5.20); White Blood Count* 9.21 K/uL (4.50-11.00)
[2024-08-21 12:48] LABS: Slide Review Reflex No
[2024-08-21 12:58] LABS: Chloride* 101 mmol/L (96-114); Potassium* 3.7 mmol/L (3.6-5.1); Sodium* 137 mmol/L (135-149)
[2024-08-21] MEDS: KETOROLAC 30 MG/ML inj 15 MG IVP (13:00)
[2024-08-21] MEDS: ONDANSETRON 2 MG/ML inj 4 MG IVP (13:00)
[2024-08-21] MEDS: 0.9 % SODIUM CHLORIDE 500 ML 500 ML IV (13:00)
[2024-08-21 13:01] LABS: Alkaline Phosphatase* 46 U/L (40-150); Anion Gap 12 mEq/L (7-15); Aspartate Amino Transferase* 26 U/L (12-35); Bilirubin Direct* 0.1 mg/dL (0.0-0.5); Bilirubin Total* 0.5 mg/dL (0.1-1.5); Blood Urea Nitrogen* 10 mg/dL (5-24); Calcium* 9.9 mg/dL (8.4-10.6); Carbon Dioxide* 24 mmol/L (20-32); Creatinine* 0.9 mg/dL (0.5-1.5); Est. Creatinine Clearance* 74.67; Estimated Glomerular Filt Rate 81 ml/min; Glucose* 98 mg/dL (60-115); Lipase* 114 U/L (23-300); Total Protein* 8.3 g/dL (6.0-8.3)
[2024-08-21 13:02] LABS: Alanine Aminotransferase* 21 U/L (4-35)
[2024-08-21 14:54] VITALS: BP 138/70; PULSE 60; RESP 16; TEMP 36.7
== END 2024-08-21 14:55 | disposition home or self-care (01) ==
PROVIDERS: Emergency Provider Emergency Medicine Emergency Medical Services; PCP Emergency Medicine
DX: K29.70 Gastritis, unspecified, without bleeding (principal)
CPT/HCPCS: 36415; 74177; 80048; 80076; 83690; 85025; 96374; 96375; 99284; J1885; J2405; J7030; Q9967

== ENCOUNTER 2025-04-01 08:24 | Outpatient (CLI) | payer OTHER, SELFPAY | END 2025-04-01 08:25 | disposition home or self-care (01) | PROVIDERS: PCP Emergency Medicine; Visit Provider Physician Assistant Medical | DX: Z00.00 Encounter for general adult medical examination without abnormal findings (principal) | CPT/HCPCS: 80053; 80061; 84443 ==